=== PATIENT | female | born 1990 | race Caucasian/White ===

== ENCOUNTER 2018-04-06 18:30 | Observation (INO) | payer MEDICAID ==
[~2018-04-06] VITALS: Ht 162.6 cm; Wt 54.4 kg
[~2018-04-06 18:30] MED LIST: BUS10T PO; PAR20T PO
[2018-04-07 00:34] LABS: Basophils # (auto) 0 uL; Basophils % (auto) 0.3 % (0.0-2.0); Eosinophils # (auto) 0.2 uL; Eosinophils % (auto) 1.5 % (0.0-7.0); Hematocrit 40.4 % (36.0-46.0); Hemoglobin 14.1 g/dL (12.2-16.2); Lymphocytes # (auto) 2.3 uL; Lymphocytes % (auto) 22.5 % (10.0-50.0); Mean Corpuscular Hemoglobin 32.2 pg (28.0-32.0); Mean Corpuscular Volume 92.1 fL (80.0-100.0); Monocytes # (auto) 0.6 uL; Monocytes % (auto) 5.9 % (0.0-12.0); Neutrophils # (auto) 7.3 uL; Neutrophils % (auto) 69.8 % (37.0-80.0); Platelet Count (auto) 199 10^3/uL (140-450); Red Blood Cells 4.39 10^6/uL (4.0-5.20); Red Cell Distribution Width 12.8 % (11.8-14.3); White Blood Cell 10.4 10^3/uL (4.4-10.8)
[2018-04-07 00:48] LABS: Calcium 8.3 mg/dL (8.5-10.1); Chloride 109 mmol/L (98-107); Potassium 3.3 mmol/L (3.5-5.1); Sodium 141 mmol/L (136-145)
[2018-04-07 00:51] LABS: Acetaminophen < 2.0 ug/mL (10-30); Albumin 3.9 g/dL (3.4-5.0); Anion Gap 8 (5-15); BUN/Creatinine Ratio 15.9; Blood Alcohol < 3.0 mg/dL (0-5); Blood Urea Nitrogen 11 mg/dL (7-18); Carbon Dioxide 24 mmol/L (21-32); GFR African American 129 mL/min; GFR Non-African American 107 mL/min; Glucose 126 mg/dL (74-106); Salicylate 2.2 mg/dL (2.8-20.0)
[2018-04-07 01:02] LABS: Alanine Aminotransferase 21 U/L (13-56); Alkaline Phosphatase 53 U/L (45-117); Aspartate Aminotransferase 9 U/L (15-37); Bilirubin, Total 0.7 mg/dL (0.2-1.0); Total Protein 7.2 g/dL (6.4-8.2)
[2018-04-07] MEDS ORDERED: SODIUM CHLORIDE 0.9% 1,000 ML IV ONE (02:45)
[2018-04-07 07:04] LABS: Alcohol, Urine < 3.0 mg/dL (0-5); Amphetamine Screen, Urine POSITIVE (NEGATIVE); Barbiturate Scree,Urine NEGATIVE (NEGATIVE); Benzodiazephine Screen, Urine NEGATIVE (NEGATIVE); Cannabinoid Screen, Urine POSITIVE (NEGATIVE); Cocaine Screen, Urine NEGATIVE (NEGATIVE); Opiate Scree,Urine NEGATIVE (NEGATIVE); Phencyclidine Screen, Urine NEGATIVE (NEGATIVE); Urine Bacteria NONE SEEN /hpf (None Seen); Urine Blood Negative /uL (Negative); Urine Mucus FEW (None Seen); Urine Specific Gravity 1.029 (1.001-1.035); Urine WBC 1 /hpf (0 - 5)
[2018-04-07 07:05] LABS: Urine Pregnacy Test Negative (Negative)
[2018-04-08] MEDS: busPIRone HCL 10 MG TAB PO SCH ×2 (09:18→22:08)
[2018-04-08] MEDS: PARoxetine 20 MG TAB PO SCH (09:18)
[2018-04-09] MEDS: PARoxetine 20 MG TAB PO SCH (10:05)
[2018-04-09] MEDS: busPIRone HCL 10 MG TAB PO SCH ×2 (10:05→21:59)
[2018-04-10 06:46] VITALS: BP 110/62
[2018-04-10] MEDS: PARoxetine 20 MG TAB PO SCH (15:30)
[2018-04-10] MEDS: busPIRone HCL 10 MG TAB PO SCH (15:30)
== END 2018-04-10 15:53 | disposition home or self-care (01) | DRG 812 ==
LOC: EDBD 18:30 → ER 18:32 → OVERFLOW 18:33 → ER 04-10 15:53
PROVIDERS: ADMIT Anesthesiology; ATTEND Anesthesiology
DX: T50.902A Poisoning by unspecified drugs, medicaments and biological substances, intentional self-harm, initial encounter (principal); F33.1 Major depressive disorder, recurrent, moderate; F41.9 Anxiety disorder, unspecified; F31.9 Bipolar disorder, unspecified; F10.10 Alcohol abuse, uncomplicated; F17.210 Nicotine dependence, cigarettes, uncomplicated; Z59.0 Homelessness
CPT/HCPCS: 36415; 80053; 80307; 80320; 80329; 81001; 81025; 85025; 93005; 99285; G0378

== ENCOUNTER 2019-06-20 15:49 | Emergency (ER) | payer MEDICAID ==
[~2019-06-20] VITALS: Ht 167.6 cm; Wt 63.5 kg
[2019-06-20 16:37] LABS: Urine Amorphous Crystal FEW /hpf (None Seen); Urine Bacteria FEW /hpf (None Seen); Urine Blood Negative /uL (Negative); Urine Mucus FEW (None Seen); Urine Specific Gravity 1.016 (1.001-1.035); Urine WBC <1 /hpf (0 - 5)
[2019-06-20 20:57] VITALS: BP 105/68
== END 2019-06-20 20:58 | disposition home or self-care (01) ==
LOC: ER 15:59
DX: O26.892 Other specified pregnancy related conditions, second trimester (principal); R10.12 Left upper quadrant pain; R10.32 Left lower quadrant pain; Z3A.16 16 weeks gestation of pregnancy
CPT/HCPCS: 36415; 76805; 81001; 84702

== ENCOUNTER 2020-10-15 15:56 | Emergency (ER) | payer MEDICAID ==
[~2020-10-15] VITALS: Ht 167.6 cm; Wt 63.5 kg
[2020-10-15 16:00] VITALS: BP 127/85
== END 2020-10-15 16:10 ==
LOC: ER 15:56
DX: S16.1XXA Strain of muscle, fascia and tendon at neck level, initial encounter (principal); F41.9 Anxiety disorder, unspecified; F17.210 Nicotine dependence, cigarettes, uncomplicated; F12.10 Cannabis abuse, uncomplicated; Z90.49 Acquired absence of other specified parts of digestive tract; Z59.0 Homelessness; V43.52XA Car driver injured in collision with other type car in traffic accident, initial encounter; Y93.89 Activity, other specified; Y92.488 Other paved roadways as the place of occurrence of the external cause; Y99.8 Other external cause status